=== PATIENT | male | born 1975 | race Two or more races ===

== ENCOUNTER 2019-09-14 20:53 | Emergency (ER) | payer OTHER ==
[~2019-09-14] VITALS: Ht 160 cm; Wt 61.2 kg
[2019-09-14 22:14] VITALS: BP 134/86
[2019-09-15] MEDS ORDERED: IBUPROFEN 800 MG TAB PO ONE (02:45)
== END 2019-09-15 02:46 | disposition home or self-care (01) ==
LOC: ER 20:53 → EDBD 20:53 → ER 09-15 02:46
DX: S61.215A Laceration without foreign body of left ring finger without damage to nail, initial encounter (principal); Z88.2 Allergy status to sulfonamides; W31.2XXA Contact with powered woodworking and forming machines, initial encounter; Y93.89 Activity, other specified; Y92.89 Other specified places as the place of occurrence of the external cause; Y99.8 Other external cause status
CPT/HCPCS: 12002; 73130

== ENCOUNTER 2021-04-10 18:51 | Emergency (ER) | payer OTHER ==
[~2021-04-10] VITALS: Ht 167.6 cm; Wt 79.4 kg
[2021-04-10 18:51] VITALS: BP 146/127
[2021-04-10] MEDS ORDERED: LIDOCAINE 1% HCL (LOCAL ANESTH.) INJ 20ML MDV IJ ONE (20:15)
[2021-04-10] MEDS ORDERED: NEOMYCIN-BACITRACIN-POLYM UNITDOSE PKG TOP OINT TOP ONE (21:15)
[2021-04-10] MEDS ORDERED: IBUPROFEN 800 MG TAB PO ONE (21:30)
== END 2021-04-10 21:17 | disposition home or self-care (01) ==
LOC: ER 18:53
DX: S61.211A Laceration without foreign body of left index finger without damage to nail, initial encounter (principal); W26.8XXA Contact with other sharp object(s), not elsewhere classified, initial encounter; Y93.89 Activity, other specified; Y92.89 Other specified places as the place of occurrence of the external cause; Y99.8 Other external cause status
CPT/HCPCS: 12002; 99283; J2001